=== PATIENT | female | born 1945 | race Caucasian/White ===

== ENCOUNTER 2021-01-25 12:21 | Day surgery (SDC) | payer MEDICARE, OTHER, SELFPAY ==
[2021-01-25] VITALS (7 sets, daily range): BP systolic 115–130; BP diastolic 58–75; PULSE 83–88; RESP 16; TEMP 36.6–37.2; O2SAT 97–100; BMI 21.0
--- NOTE | 2021-01-25 13:55 | PCM.DC ---
Discharge Instructions Diet Discharge Diet: No restrictions Activity Discharge Activity: Return to Normal Activity Dressing / Incision Call your doctor if your incision/area has: Increased Pain/ Swelling Additional Dressing/Incision Instructions:: starting , wash the incision with soap/water gently. pat dry with a towel. mupirocin to incision three times daily. Follow Up Care Please Follow Up With: radha When: 1 week Test Results: Test results from this visit will be discussed in further detail at your follow-up appointment, if applicable. Discharge Plan Admission Attending Provider: Mau Washington Primary Care Provider: Travis Boswell Discharge Orders/Prescriptions Prescriptions: No Action potassium chloride 10 mEq Capsule, Extended Release 10 meq PO BID RF: 0 acetaminophen 325 mg Tablet 325 mg PO Q4H PRN (Reason: Pain) RF: 0 donepezil 5 mg Tablet 5 mg PO QHS RF: 0 loperamide 2 mg Capsule 2 mg PO Q2H PRN (Reason: Diarrhea) RF: 0 aspirin [Aspir-81] 81 mg Tablet,Delayed Release (Dr/Ec) 81 mg PO DAILY RF: 0 nortriptyline 25 mg Capsule 25 mg PO QHS RF: 0 paroxetine HCl 20 mg Tablet 20 mg PO DAILY RF: 0 ferrous sulfate 325 mg (65 mg iron) Tablet 325 mg PO BID RF: 0 pravastatin 20 mg Tablet 20 mg PO QHS RF: 0 multivitamin Capsule 1 cap PO DAILY RF: 0 magnesium 200 mg Tablet 400 mg PO DAILY RF: 0 melatonin 1 mg Tablet 1 mg PO PRN PRN (Reason: Sleep) RF: 0 omeprazole 20 mg Tablet,Delayed Release (Dr/Ec) 20 mg PO DAILY RF: 0 Disposition Discharge Orders: Discharge Patient (Routine); Ordered 01/25/21 Ordered By: Dr. Mau Washington
--- NOTE | 2021-01-25 13:57 | PCM.OPRPT ---
Problems Associated Problem List Diagnoses (1) Mass of face: Report of Operation Date of Procedure: 01/25/21 Pre-Operative Diagnosis: 1. left midfacial lesion 2. left supraclavicular lesion Post-Operative Diagnosis: 1. left midfacial lesion 2. left supraclavicular lesion Surgery/Procedure Performed:: 1. excision left midfacial lesion defect 3 x 2 cm 2. incisional biopsy left supraclavicular lesion 3. local flap, left midface, 25 sq cm Surgeon: radha Type of Anesthesia: General/Supplemental Description of Procedure: on the day of the procedure, after appropriate informed consent was obtained, the patient was brought to the operating room and placed in supine position on the operating table. she was placed under general anesthesia with an LMA by the anesthesiologist. the left face was marked, injected with lidocaine/epinephrine and prepped/draped in sterile fashion. an incisional biopsy was taken of the left supraclavicular lesion. an elliptical incision was made over the left midfacial lesion measuring 1.5 x 2cm. it was sent for frozen section. it returned actinic keratosis with no carcinoma or atypia. an inferiorly-based rhomboid flap was designed and incisions were made with a 15 blade. the total defect was 25 square centimeters. a laterally based triangle was excised to avoid a dog ear. the flap was rotated into place and closed with a combination of 4-0 vicryl and 5-0 fast gut. the patient was awoken from anesthesia and transferred to the PACU in stable condition.
[2021-01-25] MEDS: Lidocaine 1% /Epi 1:100 (20ml) 20 ML Vial (14:24)
--- NOTE | 2021-01-25 14:34 | LES_PTH ---
PATIENT: JACKIE DORAN LOC: [facility] – [place] U#:[id number] AGE/SX: 75/F ROOM: RE01/25/[address]: Dr. Hussein Washington MD : 1945 BED: DIS: 01/25/2021 SPEC #: [id number] RECD: 01/25/21 14:37 STATUS: GORAN REShari #: [id number] PADMINI: 01/25/21 14:[address]: Hussein Washington DEPT: SURGICAL PATHOLOGY RECD BY: Karen Engel ENTERED: 01/26/21 05:49 SP TYPE: Lesion OTHR DR: Dr. Travis Boswell MD Tissues: A - Skin of face, NOS B - Skin of face, NOS Procedures: Frozen Section (charge) Surgery Specimen Level IV HEADER OPERATION: Excision lesions, mid facial with frozen section PRE-OP DIAGNOSIS: Left mid facial lesion, left supraclavicular lesion TISSUE SUBMITTED: A ? Left mid facial lesion, FS, B ? Left supraclavicular lesion FROZEN SECTION DIAGNOSIS A. Left mid facial lesion, biopsy: Ulceration and associated inflammation. Actinic keratosis. Negative for carcinoma. ROSANNA:mike 01/25/21 Case has been reviewed in consultation with Dr. Judd who concurs with the above diagnosis. IDC:AM MICROSCOPIC DIAGNOSIS A. Left mid facial lesion, excisional biopsy: Focal ulceration and associated inflammation. Ruptured follicular cyst with associated marked inflammation. Actinic keratosis. Solar elastosis. Negative for carcinoma. B. Left supraclavicular lesion, biopsy: Seborrheic keratosis. SJ:mike 01/27/2021 COMMENT Special stain for fungal organisms is positive for organisms (yeast) in the superficial keratin layers; matched control is appropriate. Case has been reviewed in consultation with Dr. Judd who concurs with the above diagnosis. IDC:AM MICROSCOPIC DESCRIPTION Slides are reviewed. GROSS DESCRIPTION A - Received fresh for frozen section diagnosis labeled with the patient's name is a specimen designated left mid facial lesion. The specimen consists of a piece of pritchett-white skin measuring 1.2 x 1 x 0.2 cm. A central area of ulcerated lesion is noted measuring 0.5 cm in greatest dimension. The specimen is oriented by a stitch at superior. The specimen is inked as follows: superior margin - black, inferior margin??blue. The specimen is serially sectioned and submitted entirely for frozen section diagnosis in one cassette. / ROSANNA:mike 01/25/21 B - Received in fixative is one container labeled with the patient's name and designated left supraclavicular lesion. The specimen consists of a piece of pritchett-white skin measuring 0.6 x 0.3 x 0.2 cm. The specimen is inked, bisected and submitted entirely in one cassette. / ROSANNA:mike 01/26/21 TC:5 CPT: 29392 x2, 71628, 43037
[2021-01-25] MEDS: Mupirocin Ointment 22gm Tube 1 APPLIC (16:11)
== END 2021-01-25 18:24 | disposition home or self-care (01) ==
LOC: SDC 12:32 → AC 12:34
PROVIDERS: PCP Orthopaedic Surgery; Referring Provider Otolaryngology; Visit Provider Otolaryngology
PROC: (CPT 11106; principal; 2021-01-25 13:50)
DX: L98.499 Non-pressure chronic ulcer of skin of other sites with unspecified severity (principal); L57.0 Actinic keratosis; L82.1 Other seborrheic keratosis; F41.9 Anxiety disorder, unspecified; F03.90 Unspecified dementia, unspecified severity, without behavioral disturbance, psychotic disturbance, mood disturbance, and anxiety; F32.A Depression, unspecified; K21.9 Gastro-esophageal reflux disease without esophagitis; J45.909 Unspecified asthma, uncomplicated; Z87.19 Personal history of other diseases of the digestive system; Z79.899 Other long term (current) drug therapy
CPT/HCPCS: 00300; 11106; 14041; 88305; 88331; J7120; A4216